=== PATIENT | male | born 1970 | race Caucasian/White ===

== ENCOUNTER 2017-04-28 13:40 | Emergency (ER) | payer MEDICAID, OTHER ==
[~2017-04-28] VITALS: Ht 180.3 cm; Wt 103.0 kg
[2017-04-28 14:07] VITALS: BP 198/108
[2017-04-28] MEDS ORDERED: ACETAMINOPHEN 500MG TABLET PO ONE (17:00)
== END 2017-04-28 17:40 | disposition home or self-care (01) ==
LOC: ER 15:01
DX: G62.9 Polyneuropathy, unspecified (principal); I10 Essential (primary) hypertension; F17.210 Nicotine dependence, cigarettes, uncomplicated; F12.90 Cannabis use, unspecified, uncomplicated
CPT/HCPCS: 99282

== ENCOUNTER 2017-05-29 10:41 | Emergency (ER) | payer MEDICAID ==
[~2017-05-29] VITALS: Ht 180.3 cm; Wt 103.0 kg
[2017-05-29] MEDS ORDERED: ONDANSETRON HCL 4MG/2ML VIAL IV STA (11:21)
[2017-05-29] MEDS ORDERED: MORPHINE SULFATE 4 MG/ML CPJ (NOT FOR IM USE) IV STA (11:21)
[2017-05-29] MEDS ORDERED: KETOROLAC 30MG/ML VIAL IV STA (11:21)
[2017-05-29] MEDS ORDERED: SODIUM CHLORIDE 0.9% 1,000 ML IV ONE (11:21)
[2017-05-29 12:33] LABS: BASOPHILS % 0.3 % (0.0-2.0); EOSINOPHILS % 0.5 % (0.0-5.0); HEMATOCRIT. 41.7 % (42.0-52.0); HEMOGLOBIN. 13.6 g/dL (14.0-18.0); LYMPHOCYTES % 18.9 % (20.0-50.0); MEAN CORPUSCULAR HEMOGLOBIN 28.6 pg (28.0-32.0); MEAN CORPUSCULAR VOLUME 87.8 fL (80.0-94.0); MEAN PLATELET VOLUME 8.5 fl (7.4-10.4); MONOCYTES % 10.1 % (2.0-8.0); NEUTROPHILS % 70.2 % (40.0-76.0); PLATELET 206 x1000/uL (130-400); RED BLOOD CELL COUNT 4.74 mill/uL (4.7-6.1); RED CELL DISTRIBUTION WIDTH 14.7 % (11.6-14.6)
[2017-05-29 12:39] LABS: INR 1.1
[2017-05-29 12:54] LABS: CARBON DIOXIDE 30 mEq/L (21-32); CHLORIDE 103 mEq/L (98-107)
[2017-05-29] MEDS ORDERED: IOHEXOL-300 100 ML BOTTLE ONE (13:57)
[2017-05-29 14:31] LABS: CLARITY URINE CLEAR (CLEAR); COLOR URINE YELLOW (YELLOW); KETONES URINE NEGATIVE (NEGATIVE); LEUKOCYTE ESTERASE URINE NEGATIVE (NEGATIVE); NITRITE URINE NEGATIVE (NEGATIVE); OCCULT BLOOD URINE NEGATIVE (NEGATIVE); PROTEIN URINE NEGATIVE (NEGATIVE); UROBILINOGEN URINE 0.2 E.U./dL (0.2-1.0)
[2017-05-29 14:45] VITALS: BP 161/97
== END 2017-05-29 14:46 | disposition home or self-care (01) ==
LOC: ER 10:41
DX: R22.0 Localized swelling, mass and lump, head (principal); I10 Essential (primary) hypertension; G51.0 Bell's palsy; F12.10 Cannabis abuse, uncomplicated
CPT/HCPCS: 36415; 70487; 80053; 81003; 85025; 85610; 96361; 96374; 96375; 99285; J1885; J2270; J2405; J7030; Q9967; Z7610

== ENCOUNTER 2019-09-18 07:28 | Emergency (ER) | payer MEDICAID ==
[~2019-09-18] VITALS: Ht 177.8 cm; Wt 101.0 kg
[2019-09-18] MEDS ORDERED: LISINOPRIL 20MG TABLET PO ONE (08:00)
[2019-09-18] MEDS ORDERED: KETOROLAC 60MG/2ML VIAL IM ONE (08:00)
[2019-09-18] MEDS ORDERED: AMLODIPINE 5MG TABLET PO ONE (15:00)
[2019-09-18 16:00] VITALS: BP 195/99
== END 2019-09-18 16:00 | disposition home or self-care (01) ==
LOC: ER 07:28
DX: S92.812A Other fracture of left foot, initial encounter for closed fracture (principal); X58.XXXA Exposure to other specified factors, initial encounter; Y93.89 Activity, other specified; Y92.89 Other specified places as the place of occurrence of the external cause; Y99.8 Other external cause status; I10 Essential (primary) hypertension; F12.10 Cannabis abuse, uncomplicated; R51 Headache
CPT/HCPCS: 29515; 73630; 99285; J1885; Z7610

== ENCOUNTER 2019-09-26 15:56 | Emergency (ER) | payer MEDICAID ==
[~2019-09-26] VITALS: Ht 172.7 cm; Wt 75.0 kg
[2019-09-26] MEDS ORDERED: ACETAMINOPHEN 325MG TABLET PO ONE (17:30)
[2019-09-26 18:00] VITALS: BP 162/99
== END 2019-09-26 18:49 | disposition home or self-care (01) ==
LOC: ER 15:56
DX: S92.302D Fracture of unspecified metatarsal bone(s), left foot, subsequent encounter for fracture with routine healing (principal); I10 Essential (primary) hypertension; X58.XXXD Exposure to other specified factors, subsequent encounter
CPT/HCPCS: 99282

== ENCOUNTER 2020-02-10 12:02 | Emergency (ER) | payer MEDICAID ==
[~2020-02-10] VITALS: Ht 180.3 cm; Wt 113.0 kg
[2020-02-10 14:53] VITALS: BP 187/105
== END 2020-02-10 14:57 | disposition home or self-care (01) ==
LOC: ER 12:02
DX: L73.8 Other specified follicular disorders (principal); L83 Acanthosis nigricans; M25.511 Pain in right shoulder; I10 Essential (primary) hypertension
CPT/HCPCS: 99283

== ENCOUNTER 2020-05-31 15:10 | Emergency (ER) | payer MEDICAID ==
[~2020-05-31] VITALS: Ht 185.4 cm; Wt 75.0 kg
[2020-05-31] MEDS ORDERED: SODIUM CHLORIDE 0.9% 1,000 ML IV ONE (16:45)
[2020-05-31] MEDS ORDERED: ACETAMINOPHEN 325MG TABLET PO ONE (16:45)
[2020-05-31 18:29] LABS: BASOPHILS % 0.7 % (0.0-2.0); EOSINOPHILS % 0.9 % (0.0-5.0); HEMATOCRIT. 40.1 % (42.0-52.0); HEMOGLOBIN. 13.2 g/dL (14.0-18.0); MEAN CORPUSCULAR HEMOGLOBIN 28.2 pg (28.0-32.0); MEAN CORPUSCULAR VOLUME 85.3 fL (80.0-94.0); MEAN PLATELET VOLUME 8.6 fl (7.4-10.4); MONOCYTES % 6.6 % (2.0-8.0); NEUTROPHILS % 58.8 % (40.0-76.0); PLATELET 234 x1000/uL (130-400)
[2020-05-31 18:36] LABS: CHLORIDE 108 mEq/L (98-107)
[2020-05-31] MEDS ORDERED: ASPIRIN 81MG TABLET PO ONE (19:45)
[2020-06-01 06:27] VITALS: BP 121/67
== END 2020-06-01 06:51 | disposition left against medical advice (07) ==
LOC: ER 15:10 → EDBEDREQ 20:23 → EDBEDREQTM 20:23 → ER 06-01 06:51 → CANBEDREQ 06-01 14:54
DX: I10 Essential (primary) hypertension (principal); I21.3 ST elevation (STEMI) myocardial infarction of unspecified site; U07.1 COVID-19
CPT/HCPCS: 36415; 70450; 71045; 80053; 83605; 83880; 84484; 85025; 93005; 96360; 99285; C9803; J7030; U0003; Z7610; A4315

== ENCOUNTER 2022-03-01 12:42 | Emergency (ER) | payer MEDICAID ==
[~2022-03-01] VITALS: Ht 180.3 cm; Wt 111.0 kg
[2022-03-01 12:56] VITALS: BP 209/116
== END 2022-03-01 13:30 | disposition left against medical advice (07) ==
LOC: ER 12:42
DX: Z53.21 Procedure and treatment not carried out due to patient leaving prior to being seen by health care provider (principal)

== ENCOUNTER 2023-07-26 00:21 | Emergency (ER) | payer OTHER ==
[~2023-07-26] VITALS: Ht 180.3 cm; Wt 108.0 kg
[~2023-07-26 00:21] MED LIST: HYDR100T26 MT; LOSA-415 PO; NIFE-32 PO
[2023-07-26 00:28] VITALS: O2SAT 98
[2023-07-26] MEDS ORDERED: VANCOMYCIN 1G PREMIX 200 ML IV ONE (03:45)
[2023-07-26 03:55] LABS: BASOPHILS % 0.6 % (0.0-2.0); EOSINOPHILS % 2.7 % (0.0-5.0); HEMATOCRIT. 36.9 % (42.0-52.0); HEMOGLOBIN. 12.3 g/dL (14.0-18.0); LYMPHOCYTES % 16.9 % (20.0-50.0); MEAN CORPUSCULAR HEMOGLOBIN 28.6 pg (28.0-32.0); MEAN CORPUSCULAR HGB CONC 33.3 g/dL (31.0-37.0); MEAN PLATELET VOLUME 8.8 fl (7.4-10.4); MONOCYTES % 8.3 % (2.0-8.0); NEUTROPHILS % 71.5 % (40.0-76.0); PLATELET 275 x1000/uL (130-400); RED CELL DISTRIBUTION WIDTH 14.9 % (11.6-14.6); WHITE BLOOD COUNT 8.4 x1000/uL (4.5-11.0)
[2023-07-26] MEDS: PIPERACILLIN/TAZO 3.375G/50ML 50 ML IV ONE (04:26)
[2023-07-26 04:27] LABS: ALANINE AMINOTRANSFERASE 29 IU/L (10-49); ASPARTATE AMINOTRANSFERASE 28 IU/L (<34); BILIRUBIN TOTAL 0.3 mg/dL (0.1-1.0); CALCIUM 8.7 mg/dL (8.7-10.4); CARBON DIOXIDE 27 mEq/L (21-32); CHLORIDE 102 mEq/L (98-107); CREATINE KINASE 389 IU/L (46-171); CREATININE 1.4 mg/dL (0.6-1.3); GLUCOSE 98 mg/dL (70-105); POTASSIUM 3.9 mEq/L (3.5-5.1); SODIUM 137 mEq/L (136-145); UREA NITROGEN BLOOD 38 mg/dL (9-23)
[2023-07-26] MEDS: VANCOMYCIN 1G PREMIX 200 ML IV NR (04:36)
[2023-07-26] MEDS: SODIUM CHLORIDE 0.9% 1,000 ML IV ONE (05:00)
[2023-07-26] MEDS: HYDRALAZINE 20MG/ML VIAL IV ONE (06:10)
[2023-07-26] MEDS ORDERED: LABETALOL HCL VIAL 20 MG/4 ML VIAL IV ONE (06:45)
[2023-07-26] MEDS: LABETALOL 5MG/ML SYR 20 MG/4 ML SYRINGE IV NR (06:56)
[2023-07-26 08:07] VITALS: BP 175/99; PULSE 82; RESP 11; TEMP 99
[2023-07-29] MEDS ORDERED: LABE100T9 MT (11:38)
[2023-07-29] MEDS ORDERED: APIX5TAB PO (11:38)
[2023-07-29] MEDS ORDERED: LISI40TA13 PO (11:38)
[2023-07-29] MEDS ORDERED: AMLO10TA80 MT (11:38)
[2023-07-29] MEDS ORDERED: CHLO50TA MT (11:38)
[2023-07-29] MEDS ORDERED: AMLO5TAB88 MT (11:38)
[2023-07-29] MEDS ORDERED: ALBU10.7 (11:38)
== END 2023-07-26 08:29 | disposition short-term general hospital (02) ==
LOC: ER 00:21
DX: L03.116 Cellulitis of left lower limb (principal); L03.115 Cellulitis of right lower limb; F17.200 Nicotine dependence, unspecified, uncomplicated; I10 Essential (primary) hypertension
CPT/HCPCS: 80053; 82550; 83880; 83605; 85025; 85379; 87040; 36415; 71045; 93970; 96374; 96375; 99285; J0360; J3490; J2543; J3370; J7030; Z7610 ×2

== ENCOUNTER 2025-02-04 20:49 | Emergency (ER) | payer MEDICAID, OTHER ==
[~2025-02-04] VITALS: Ht 177.8 cm; Wt 107.7 kg
[~2025-02-04 20:49] MED LIST changes: +ALBU10.7; +AMLO10TA80 MT; +AMLO5TAB88 MT; +APIX5TAB PO; +CHLO50TA MT; +HYDR100T11 MT; -HYDR100T26 MT; +LABE100T9 MT; +LISI40TA13 PO
[2025-02-04 20:50] VITALS: O2SAT 98
[2025-02-04 21:18] VITALS: BP 171/82; PULSE 84; RESP 16; TEMP 37.1; O2SAT 98
[2025-02-04] MEDS ORDERED: TERB30CR8 TP (22:53)
[2025-02-04] MEDS ORDERED: TERB250T88 MT (22:53)
[2025-02-04] MEDS ORDERED: ACET-2708 MT (22:54)
[2025-02-04] MEDS ORDERED: LIDO-53 TP (22:54)
[2025-02-04 23:01] VITALS: TEMP 98.7
[2025-02-04] MEDS: ACETAMINOPHEN 500MG TABLET PO ONE (23:01)
== END 2025-02-04 23:20 | disposition home or self-care (01) ==
LOC: ER 20:49
DX: L60.2 Onychogryphosis (principal); B35.1 Tinea unguium; I10 Essential (primary) hypertension; F32.A Depression, unspecified; Z79.899 Other long term (current) drug therapy
CPT/HCPCS: 99283

== ENCOUNTER 2025-02-14 22:49 | Emergency (ER) | payer OTHER ==
[~2025-02-14] VITALS: Ht 177.8 cm; Wt 100.0 kg
[~2025-02-14 22:49] MED LIST changes: +ACET-2708 MT; +LIDO-53 TP; -LISI40TA13 PO; +LISI40TA21 PO; +TERB250T88 MT; +TERB30CR8 TP
[2025-02-14 23:05] VITALS: O2SAT 97
[2025-02-15] MEDS ORDERED: CLONIDINE 0.2MG TABLET PO ONE (00:15)
[2025-02-15] MEDS: CLONIDINE 0.1MG TABLET PO NR (00:46)
[2025-02-15] MEDS: IBUPROFEN 600MG TABLET PO ONE (00:46)
[2025-02-15 00:51] LABS: BASOPHILS % 0.5 % (0.0-2.0); EOSINOPHILS % 2.9 % (0.0-5.0); HEMATOCRIT. 33.5 % (42.0-52.0); HEMOGLOBIN. 10.8 g/dL (14.0-18.0); LYMPHOCYTES % 18.3 % (20.0-50.0); MEAN PLATELET VOLUME 8.8 fl (7.4-10.4); MONOCYTES % 11.6 % (2.0-8.0); NEUTROPHILS % 66.7 % (40.0-76.0); PLATELET 215 x1000/uL (130-400); RED BLOOD CELL COUNT 3.95 mill/uL (4.7-6.1); RED CELL DISTRIBUTION WIDTH 15.8 % (11.6-14.6)
[2025-02-15 01:11] LABS: CREATININE 1.4 mg/dL (0.6-1.3); UREA NITROGEN BLOOD 18.0 mg/dL (9-23)
[2025-02-15 03:57] VITALS: BP 128/78; PULSE 94; RESP 16; TEMP 36.6; O2SAT 97
== END 2025-02-15 04:32 | disposition short-term general hospital (02) ==
LOC: ER 22:49 → EDBEDREQ 02-15 02:38 → EDBEDREQTM 02-15 02:38 → ER 02-15 04:32 → CMPBEDREQ 02-15 05:11
DX: L03.115 Cellulitis of right lower limb (principal); B87.1 Wound myiasis; I10 Essential (primary) hypertension; Z79.899 Other long term (current) drug therapy
CPT/HCPCS: 36415; 80048; 85025; 99285